=== PATIENT | male | born 1970 | race Two or more races ===

== ENCOUNTER 2020-11-27 19:33 | Emergency (ER) | payer OTHER ==
[~2020-11-27] VITALS: Ht 172.7 cm; Wt 79.8 kg
[2020-11-27] MEDS ORDERED: DEXILANT60 MG PO (19:50)
[2020-11-28] MEDS ORDERED: FLAGYL500MG PO (00:11)
[2020-11-28] MEDS ORDERED: PROBIOTIC & AC1 EACH PO (00:11)
[2020-11-28] MEDS ORDERED: CIPRO500 MG PO (00:11)
== END 2020-11-28 03:19 | disposition home or self-care (01) ==
LOC: ER 19:33
DX: K52.89 Other specified noninfective gastroenteritis and colitis (principal)

== ENCOUNTER 2023-02-05 23:49 | Emergency (ER) | payer OTHER ==
[~2023-02-05] VITALS: Ht 172.7 cm; Wt 81.6 kg
[~2023-02-05 23:49] MED LIST: CIPRO500 MG PO; DEXILANT60 MG PO; FLAGYL500MG PO; PROBIOTIC & AC1 EACH PO
[2023-02-06 06:04] LABS: HEMATOCRIT 39.7 % (39.0-48.0); HEMOGLOBIN 12.9 g/dL (13-16.00); MEAN CELL VOLUME 83.8 fL (80.0-100.00); MEAN CORPUSCULAR HEMOGLOBIN 27.3 pg (27.00-32.0); MEAN CORPUSCULAR HGB CONC 32.6 g/dl (32.0-36.0); PLATELET COUNT 243 K/uL (150-450); RED BLOOD COUNT 4.73 M/uL (4.00-6.00); RED CELL DISTRIBUTION WIDTH 13.9 % (11.5-14.5)
[2023-02-06 06:39] LABS: CALCIUM 8.7 mg/dL (8.5-10.1); CREATININE SERUM 0.86 mg/dL (0.70-1.30); GFR 93.75; POTASSIUM 3.54 mEq/L (3.5-5.1)
== END 2023-02-06 08:09 | disposition home or self-care (01) ==
LOC: ER 23:50
DX: K59.1 Functional diarrhea (principal)

== ENCOUNTER 2023-09-28 12:22 | Emergency (ER) | payer OTHER ==
[~2023-09-28] VITALS: Ht 172.7 cm; Wt 79.8 kg
[2023-09-28] MEDS ORDERED: RINGERS SOLUTION,LACTATED 1,000 ML IV STA (13:29)
[2023-09-28] MEDS ORDERED: FAMOtidine 10 MG/ML (4ML VIAL) IV SCH (13:30)
[2023-09-28] MEDS ORDERED: DICYCLOMINE HCL 10 MG CAPSULE PO STA (13:34)
[2023-09-28] MEDS ORDERED: METOCLOPRAMIDE HCL 10 MG in 0.9 % SODIUM CHLORIDE 50 ML IV ONE (13:45)
[2023-09-28 14:15] LABS: HEMATOCRIT 40.5 % (39.0-48.0); HEMOGLOBIN 13.6 g/dL (13-16.00); MEAN CELL VOLUME 82.5 fL (80.0-100.00); MEAN CORPUSCULAR HEMOGLOBIN 27.8 pg (27.00-32.0); MEAN CORPUSCULAR HGB CONC 33.7 g/dl (32.0-36.0); PLATELET COUNT 274 K/uL (150-450); RED BLOOD COUNT 4.91 M/uL (4.00-6.00); RED CELL DISTRIBUTION WIDTH 14.1 % (11.5-14.5)
[2023-09-28 15:11] LABS: CREATININE SERUM 0.72 mg/dL (0.70-1.30); GFR 114.64; POTASSIUM 4.13 mEq/L (3.5-5.1)
[2023-09-28] MEDS ORDERED: FUROsemide 20 MG/2 ML VIAL IV PRN (16:45)
[2023-09-28] MEDS ORDERED: METRONIDAZOLE/SODIUM CHLORIDE 500 MG/100 ML PIGGYBACK IV ONE (18:45)
== END 2023-09-28 21:02 | disposition home or self-care (01) ==
LOC: ER 12:23
PROVIDERS: General Practice
DX: K58.0 Irritable bowel syndrome with diarrhea (principal); Z88.0 Allergy status to penicillin
CPT/HCPCS: 36415; 96365; 99282; J0500; J2765; J3490

== ENCOUNTER 2024-07-15 13:13 | Emergency (ER) | payer OTHER ==
[~2024-07-15] VITALS: Ht 172.7 cm; Wt 82.6 kg
[2024-07-15] MEDS ORDERED: ONDANSETRON HCL 2 MG/ML VIAL IV ONE (16:30)
[2024-07-15] MEDS ORDERED: FAMOtidine 10 MG/ML (4ML VIAL) IV ONE (16:30)
[2024-07-15] MEDS ORDERED: CHOLESTYRAMINE/ASPARTAME LIGHT 4 G/PKT PACKET PO ONE (16:30)
[2024-07-15] MEDS ORDERED: 0.9 % SODIUM CHLORIDE 1,000 ML IV ONE (16:30)
[2024-07-15] MEDS ORDERED: ONDANSETRON HCL 2 MG/ML VIAL ONE (16:36)
[2024-07-15] MEDS ORDERED: FAMOTIDINE/PF 20 MG/2 ML VIAL ONE (16:37)
[2024-07-15 17:34] LABS: HEMATOCRIT 42.9 % (39.0-48.0); HEMOGLOBIN 14.3 g/dL (13-16.00); MEAN CELL VOLUME 83.6 fL (80.0-100.00); MEAN CORPUSCULAR HEMOGLOBIN 27.8 pg (27.00-32.0); MEAN CORPUSCULAR HGB CONC 33.3 g/dl (32.0-36.0); PLATELET COUNT 246 K/uL (150-450); RED BLOOD COUNT 5.13 M/uL (4.00-6.00); RED CELL DISTRIBUTION WIDTH 13.8 % (11.5-14.5)
[2024-07-15 17:49] LABS: COVID-19 AG NEGATIVE (NEGATIVE)
[2024-07-15 17:51] LABS: INFLUENZA A AG NEGATIVE (NEGATIVE)
[2024-07-15 17:55] LABS: ALBUMIN 4.1 gm/dL (3.4-5.0); BILIRUBIN TOTAL 0.29 mg/dL (0.3-1.2); CALCIUM 9.4 mg/dL (8.5-10.1); CREATININE SERUM 0.76 mg/dL (0.70-1.30); GFR 107.7; GLOBULINA 3.9 G/DL (2.4-3.5); POTASSIUM 3.91 mEq/L (3.5-5.1)
[2024-07-15] MEDS ORDERED: LEVSIN/SL0.125 MG SL (18:03)
[2024-07-15] MEDS ORDERED: PEPCID AC20 MG PO (18:03)
[2024-07-15] MEDS ORDERED: CIPRO500 MG PO (18:03)
[2024-07-15] MEDS ORDERED: PROBIOTIC1 EAC2 PO (18:03)
[2024-07-15] MEDS ORDERED: METRONIDAZOLE500 MG PO (18:03)
== END 2024-07-15 18:40 | disposition home or self-care (01) ==
LOC: ER 13:14
PROVIDERS: General Practice
DX: K52.9 Noninfective gastroenteritis and colitis, unspecified (principal); A05.9 Bacterial foodborne intoxication, unspecified; Z20.822 Contact with and (suspected) exposure to COVID-19; Z88.0 Allergy status to penicillin; Z87.09 Personal history of other diseases of the respiratory system